=== PATIENT | female | born 1980 | race Caucasian/White ===

== ENCOUNTER 2021-02-03 16:18 | Inpatient (IN) | payer MEDICAID ==
[~2021-02-03] VITALS: Ht 162.6 cm; Wt 125.0 kg
[~2021-02-03 16:18] MED LIST: GENT5DRO4 EACHEYE
[2021-02-03] MEDS ORDERED: morphine 4 MG/ML inj SYRINge IV ONE (16:55)
[2021-02-03] MEDS ORDERED: famotidine/PF 10 mg/ml inj IV ONE (16:55)
[2021-02-03] MEDS ORDERED: diphenhydrAMINE 50 mg/ml inj IV ONE (16:55)
[2021-02-03] MEDS ORDERED: LORazepam 2 mg/ml vial IV ONE (16:55)
[2021-02-03] MEDS ORDERED: normal saline 1000ML IV soln IV ONE (16:55)
[2021-02-03] MEDS ORDERED: CefTRIAXone 2gm/D5W 50ml BAG 50 ML IV ONE (16:55)
[2021-02-03 17:28] LABS: BASOPHILS % (AUTO) 0.5 % (0-1); EOSINOPHILS # (AUTO) 0.2 X10'3 (0-0.9); EOSINOPHILS % (AUTO) 1.4 % (0-6); HEMATOCRIT 41.8 % (35.0-45.0); HEMOGLOBIN 13.8 g/dl (12.0-16.0); LYMPHOCYTES % (AUTO) 19.3 % (21-51); MEAN CORPUSCULAR HEMOGLOBIN 29.1 PG (27.0-31.0); MEAN CORPUSCULAR HGB CONC 33.1 g/dL (33.0-36.5); MEAN CORPUSCULAR VOLUME 87.9 FL (78-98); MEAN PLATELET VOLUME 7.6 FL (7.4-10.4); MONOCYTES # (AUTO) 0.8 X10'3 (0-0.9); MONOCYTES % (AUTO) 7.7 % (2-12); NEUTROPHILS # (AUTO) 7.5 X10'3 (1.8-7.7); NEUTROPHILS % (AUTO) 71.1 % (42-75); PLATELET COUNT 377 X10'3 (140-440); RED BLOOD COUNT 4.76 X10'6 (4.20-5.60); RED CELL DISTRIBUTION WIDTH 14.4 % (11.5-14.5); WHITE BLOOD COUNT 10.6 X10'3 (4.5-11.0)
[2021-02-03 17:59] LABS: ALANINE AMINOTRANSFERASE 25 U/L (12-78); ALBUMIN 3.7 G/DL (3.4-5.0); ALBUMIN/GLOBULIN RATIO 0.9 (1.1-1.5); ALKALINE PHOSPHATASE 126 IU/L (46-116); ANION GAP 11 (8-16); ASPARTATE AMINO TRANSFERASE 12 U/L (10-37); BILIRUBIN,TOTAL 0.2 MG/DL (0.1-1.0); BLOOD UREA NITROGEN 13 MG/DL (7-18); BUN/CREATININE RATIO 14.1 (6.6-38.0); CALCIUM 8.7 MG/DL (8.5-10.1); CHLORIDE 102 MMOL/L (99-107); CREATININE 0.92 MG/DL (0.40-0.90); GLUCOSE 111 MG/DL (70-104); POTASSIUM 3.9 MMOL/L (3.5-5.1); SODIUM 140 MMOL/L (135-145); eGFR 67 ML/MIN
[2021-02-03] MEDS ORDERED: mag hydrox/Alum hydrox/simeth 30ml oral suspension PO ONE (18:15)
[2021-02-03] MEDS ORDERED: LIDOcaine Viscous 15ml cup MM ONE (18:15)
[2021-02-03] MEDS ORDERED: sucralfate 1 gm tablet PO ONE (18:15)
[2021-02-03] MEDS ORDERED: metoclopramide 5 mg/ml inj IV ONE (18:15)
[2021-02-03] MEDS ORDERED: pantoprazole 40 MG vial IV ONE (18:40)
[2021-02-03] MEDS ORDERED: potassium Cl 40MEQ/1/2NS 520ml 520 ML IV PRN ×2 (19:35)
[2021-02-03] MEDS ORDERED: magnesium 2GM in 50ml NS 50 ML IV PRN (19:35)
[2021-02-03] MEDS ORDERED: magnesium 4gm in 100ml NS 100 ML IV PRN (19:35)
[2021-02-03] MEDS ORDERED: potassium Cl 20 mEq SR tablet PO PRN ×2 (19:35)
[2021-02-03] MEDS ORDERED: acetaminophen 650mg rectal suppository RC PRN (19:35)
[2021-02-03] MEDS ORDERED: ondansetron/PF 4mg/2ml inj IV PRN (19:35)
[2021-02-03] MEDS ORDERED: magnesium Cl slow-release 64mg tablet PO PRN (19:35)
[2021-02-03] MEDS ORDERED: hydrALAZINE 20mg/ml inj. IV PRN (20:00)
[2021-02-03] MEDS: K and/or MAG REPLACEMENT MC SCH (20:00)
[2021-02-03] MEDS ORDERED: SPIR50TA5 PO (20:19)
[2021-02-03] MEDS ORDERED: LEVO50TA8 PO (20:19)
[2021-02-03] MEDS ORDERED: LOSA50TA64 PO (20:19)
--- NOTE | 2021-02-03 20:42 | NUR ---
PAGER ID: [phone] MESSAGE: Radha Viveros0- New pt. Amy Lackey in 4024A admitted from ER. Needs her Med Rec addressed please. Thank you.
[2021-02-03] MEDS: spironolactone 50 MG tablet PO SCH (20:45)
[2021-02-03 20:57] VITALS: BP 160/100
[2021-02-03] MEDS ORDERED: pantoprazole 40MG/NS 100ML BAG 100 ML IV ONE (21:00)
[2021-02-03] MEDS: normal saline 1000ml 1,000 ML IV SCH (21:53)
[2021-02-03 22:30] VITALS: BP 135/83
[2021-02-03 22:42] LABS: CLARITY,URINE CLOUDY (Clear); COLOR,URINE YELLOW (Yellow); GLUCOSE, URINE NEGATIVE (Neg); KETONES,URINE NEGATIVE (Neg); LEUKOCYTE ESTERASE ,URINE NEGATIVE (Neg); NITRITES, URINE NEGATIVE (Neg); OCCULT BLOOD,URINE MODERATE (Neg); PH,URINE 5.5 (4.8-8.0); PROTEIN,URINE NEGATIVE (Neg); UROBILINOGEN,URINE 0.2 E.U/dL (0.2-1.0)
[2021-02-03 22:43] LABS: URINE HCG NEGATIVE (NEG)
[2021-02-03 22:45] LABS: UA COLLECTION TYPE CLN CATCH MIDSTREAM
[2021-02-03 23:09] LABS: AMORPHOUS URATES 3+; BACTERIA,URINE NONE SEEN /HPF (Neg); RBC,URINE NONE SEEN /HPF (0-2); SQUAMOUS EPITHELIAL CELL,UR FEW /LPF (FEW); WBC,URINE 0-4 /HPF (0-4)
[2021-02-04] VITALS (13 sets, daily range): BP systolic 143–167; BP diastolic 84–104
[2021-02-04] MEDS: normal saline 1000ml 1,000 ML IV SCH ×2 (00:54→11:27)
--- NOTE | 2021-02-04 06:10 | NUR ---
Patient in room [facility]TH[facility] 4024. I have received report from Erik GONSALEZ and had the opportunity to ask questions and assume patient care.
--- NOTE | 2021-02-04 06:24 | NUR ---
reported to days. noted pt resting w/o distress - anticipates EGD this am - will call to schedule when order is received.
[2021-02-04] MEDS: levoTHYROXINE 25mcg tablet PO SCH (07:00)
[2021-02-04] MEDS: spironolactone 50 MG tablet PO SCH (08:00)
[2021-02-04] MEDS: K and/or MAG REPLACEMENT MC SCH ×2 (08:00→20:00)
[2021-02-04 08:20] LABS: BASOPHILS % (AUTO) 0.5 % (0-1); EOSINOPHILS # (AUTO) 0.1 X10'3 (0-0.9); HEMATOCRIT 36.1 % (35.0-45.0); HEMOGLOBIN 12.1 g/dl (12.0-16.0); LYMPHOCYTES # (AUTO) 1.4 X10'3 (1.1-4.8); LYMPHOCYTES % (AUTO) 20.4 % (21-51); MEAN CORPUSCULAR HEMOGLOBIN 29.9 PG (27.0-31.0); MEAN CORPUSCULAR HGB CONC 33.6 g/dL (33.0-36.5); MEAN CORPUSCULAR VOLUME 88.9 FL (78-98); MEAN PLATELET VOLUME 7.6 FL (7.4-10.4); MONOCYTES # (AUTO) 0.4 X10'3 (0-0.9); MONOCYTES % (AUTO) 5.7 % (2-12); NEUTROPHILS # (AUTO) 4.9 X10'3 (1.8-7.7); NEUTROPHILS % (AUTO) 71.4 % (42-75); PLATELET COUNT 332 X10'3 (140-440); RED BLOOD COUNT 4.06 X10'6 (4.20-5.60); RED CELL DISTRIBUTION WIDTH 14.4 % (11.5-14.5); WHITE BLOOD COUNT 6.8 X10'3 (4.5-11.0)
[2021-02-04 08:35] LABS: ANION GAP 7 (8-16); BLOOD UREA NITROGEN 9 MG/DL (7-18); BUN/CREATININE RATIO 11.7 (6.6-38.0); CHLORIDE 107 MMOL/L (99-107); CREATININE 0.77 MG/DL (0.40-0.90); GLUCOSE 121 MG/DL (70-104); POTASSIUM 3.9 MMOL/L (3.5-5.1); SODIUM 141 MMOL/L (135-145); TOTAL CARBON DIOXIDE 27.4 MMOL/L (24-32); eGFR 82 ML/MIN
--- NOTE | 2021-02-04 11:35 | NUR ---
Initial: Pt sent to the ER by her PMD for difficulty swallowing, reporting that it feels like her medication taken [employer] is stuck in her throat. Per ED note pt states that she had a thyroidectomy one year ago and has had some mild dysphagia since. Pt currently NPO pending EGD per RN notes. Pt would benefit from BSS with ST for further evaluation prior to diet advancement. Per EMR patient's usual diet at home is soft foods. Pt denied wt loss or decrease in appetite per malnutrition risk screen with RN. LBM 02/02. Will continue to follow closely and make recommendations as appropriate. Recommendations: 1) BSS prior to diet advancement; recommend regular diet 2) Bowel care per rx 3) Scaled weight this admit; routine scaled weights thereafter Addendum: 02/04/21 at [address] Amended: Links added.
[2021-02-04] MEDS: morphine 2 MG/ML inj. syringe IV PRN ×2 (13:22→20:29)
--- NOTE | 2021-02-04 15:43 | NUR ---
Pt went to the GI lab
[2021-02-04] MEDS ORDERED: LIDOcaine Viscous 15ml cup ONE (16:12)
[2021-02-04] MEDS ORDERED: MIDAZolam 1 MG/ML 5ML VIAL ONE (16:12)
[2021-02-04] MEDS ORDERED: fentaNYL/PF 50MCG/1 ML 2ML syringe ONE (16:12)
--- NOTE | 2021-02-04 18:22 | NUR ---
Problems reprioritized. Patient report given, questions answered & plan of care reviewed with Erik GONSALEZ.
[2021-02-04] MEDS ORDERED: LIDOcaine Viscous 15ml cup MM PRN (19:55)
[2021-02-04] MEDS: pantoprazole 40 MG vial IV SCH (20:30)
[2021-02-05] MEDS: normal saline 1000ml 1,000 ML IV SCH (01:35)
[2021-02-05 06:00] VITALS: BP 97/60
--- NOTE | 2021-02-05 06:10 | NUR ---
Patient in room [facility]TH[facility] 4024. I have received report from Erik GONSALEZ and had the opportunity to ask questions and assume patient care.
--- NOTE | 2021-02-05 06:13 | NUR ---
pt states she slept well. anxious to go home. pain in throat tolerable and ice water soothes. declined viscous lidocaine at this time. informed that MD may have to come in to discharge. her.
[2021-02-05 06:15] LABS: ANION GAP 8 (8-16); BLOOD UREA NITROGEN 8 MG/DL (7-18); BUN/CREATININE RATIO 10.5 (6.6-38.0); CALCIUM 8.5 MG/DL (8.5-10.1); CHLORIDE 105 MMOL/L (99-107); CREATININE 0.76 MG/DL (0.40-0.90); GLUCOSE 113 MG/DL (70-104); POTASSIUM 3.9 MMOL/L (3.5-5.1); SODIUM 140 MMOL/L (135-145); TOTAL CARBON DIOXIDE 27.2 MMOL/L (24-32); eGFR 83 ML/MIN
[2021-02-05 06:28] LABS: BASOPHILS % (AUTO) 0.3 % (0-1); EOSINOPHILS # (AUTO) 0.2 X10'3 (0-0.9); EOSINOPHILS % (AUTO) 3.2 % (0-6); HEMATOCRIT 37.2 % (35.0-45.0); HEMOGLOBIN 12.4 g/dl (12.0-16.0); LYMPHOCYTES # (AUTO) 1.4 X10'3 (1.1-4.8); LYMPHOCYTES % (AUTO) 19.6 % (21-51); MEAN CORPUSCULAR HEMOGLOBIN 29.7 PG (27.0-31.0); MEAN CORPUSCULAR HGB CONC 33.3 g/dL (33.0-36.5); MEAN CORPUSCULAR VOLUME 89.1 FL (78-98); MEAN PLATELET VOLUME 7.5 FL (7.4-10.4); MONOCYTES # (AUTO) 0.4 X10'3 (0-0.9); MONOCYTES % (AUTO) 5.8 % (2-12); NEUTROPHILS % (AUTO) 71.1 % (42-75); PLATELET COUNT 306 X10'3 (140-440); RED BLOOD COUNT 4.17 X10'6 (4.20-5.60); RED CELL DISTRIBUTION WIDTH 14.2 % (11.5-14.5)
--- NOTE | 2021-02-05 07:03 | NUR ---
Patient in room ORTHO 4024. I have received report from SUNSHINE Walls and had the opportunity to ask questions and assume patient care.
[2021-02-05] MEDS: levoTHYROXINE 25mcg tablet PO SCH (07:45)
[2021-02-05] MEDS: pantoprazole 40 MG vial IV SCH (07:45)
[2021-02-05] MEDS: spironolactone 50 MG tablet PO SCH (07:45)
[2021-02-05] MEDS: K and/or MAG REPLACEMENT MC SCH (08:00)
[2021-02-05 10:00] VITALS: BP 150/95
[2021-02-05] MEDS ORDERED: PANT40TA54 PO (10:10)
--- NOTE | 2021-02-05 10:45 | NUR ---
Called Pantoprazole Rx to [facility] on [address] to Tha Pharmacist
--- NOTE | 2021-02-05 11:19 | NUR ---
Discharged patient to home alert, oriented and stable. Patient was given discharge instructions and given the opportunity to ask and have questions answered. Patient Rx pantoprazole called into [email or web address] on [address]. Patient took all belongings with her and drove herself home. Patient ambulated to the front of the hospital and to her car with no issues. Patient has follow up appt already scheduled with PCP and with Halina for stenosis.
== END 2021-02-05 11:15 | disposition home or self-care (01) | DRG 241 ==
LOC: ER 16:18 → ED HOLD 20:12 → OBSVTOIN 20:12 → ORTHO 4S 20:54
PROVIDERS: ADMIT Internal Medicine; ATTEND Internal Medicine
PROC: 0DB58ZX Excision of Esophagus, Via Natural or Artificial Opening Endoscopic, Diagnostic (ICD-10-PCS; principal; 2021-02-04)
PROC: 0DB68ZX Excision of Stomach, Via Natural or Artificial Opening Endoscopic, Diagnostic (ICD-10-PCS; 2021-02-04)
DX: K29.70 Gastritis, unspecified, without bleeding (principal); E66.01 Morbid (severe) obesity due to excess calories; K22.2 Esophageal obstruction; T18.108A Unspecified foreign body in esophagus causing other injury, initial encounter; Z68.42 Body mass index [BMI] 45.0-49.9, adult; K21.00 Gastro-esophageal reflux disease with esophagitis, without bleeding; X58.XXXA Exposure to other specified factors, initial encounter; F32.9 Major depressive disorder, single episode, unspecified; E89.0 Postprocedural hypothyroidism; I10 Essential (primary) hypertension; K22.4 Dyskinesia of esophagus; Z98.891 History of uterine scar from previous surgery; Z98.51 Tubal ligation status; Z88.8 Allergy status to other drugs, medicaments and biological substances; Y93.89 Activity, other specified; Y92.89 Other specified places as the place of occurrence of the external cause; Y99.8 Other external cause status
CPT/HCPCS: 36415; 43239; 71045; 71250; 80048; 80053; 81001; 81025; 83605; 83735; 84145; 84443; 85025; 85651; 87040; 87081; 93005; 96365; 96375; 99152; 99285; A4620; C9113; G0378; J0696; J1200; J2060; J2250; J2270; J2765; J3010; J3490; J7030; J7040